=== PATIENT | female | born 2000 | race Caucasian/White ===

== ENCOUNTER 2023-08-31 03:27 | Outpatient (CLI) | payer SELFPAY | END 2023-08-31 03:28 | disposition home or self-care (01) | PROVIDERS: Visit Provider Midwife | DX: Z34.01 Encounter for supervision of normal first pregnancy, first trimester (principal) | CPT/HCPCS: 36415; 86900; 86901 ==

== ENCOUNTER → 2023-09-27 01:09 | Outpatient (CLI) | payer MEDICAID, SELFPAY ==
--- NOTE | 2023-09-27 | DI.US_ITS ---
Exam(s) US OB 2-3 TRIMESTER W MOD EXAM: US OB 2-3 TRIMESTER W MOD CLINICAL HISTORY: SURVEY,z34.00. TECHNIQUE: Transabdominal obstetrical ultrasound performed. COMPARISON: US US OB 1ST TRIMESTER from 08/14/2023 FINDINGS: Number of fetuses: One. position: Ruy breech Placental grade: 1 Placental location: Anterior tip of placenta measures 2.9 cm from internal os.. Cervical length 4.3 cm. BIOMETRIC DATA: BPD: 47mm = 20+ 2 weeks HC: 183mm = 20+ 5 weeks AC: 151mm = 20+ 2 weeks FL: 34mm = 20+ 6 weeks Cisterna Magna: 4 mm Cerebellum: 2.0 cm EFW: 360 grms 60% Composite Age: 20 weeks 4 days EDC by US: 10 February 2024 Heart Rate: 144BPM Amniotic fluid : Amount of fluid is within normal limits. ANATOMICAL SURVEY: Four-chambered heart: Unremarkable. LVOT: Unremarkable. RVOT: Not well seen. Left-sided stomach: Unremarkable. urinary bladder: Unremarkable. Bilateral kidneys: Unremarkable. Three-vessel cord: Unremarkable. Cord insertion: Unremarkable. Posterior fossa:Unremarkable. ventricles: Unremarkable. profile: Not well seen. nose: Unremarkable. lips: Unremarkable. palate: Unremarkable. spine: Unremarkable. Two arms and two legs: Unremarkable. IMPRESSION: 1. Single live intrauterine gestation with composite age of 20 weeks 4 days. 2. Normal anatomic survey. RVOT not and profile not well seen. The patient is to return at a later date for additional imaging. DATA REPOSITORY:
== END ==
PROVIDERS: Visit Provider Midwife
DX: Z34.02 Encounter for supervision of normal first pregnancy, second trimester (principal)
CPT/HCPCS: 76805

== ENCOUNTER → 2023-10-09 02:23 | Outpatient (CLI) | payer MEDICAID, SELFPAY ==
--- NOTE | 2023-10-09 | DI.US_ITS ---
Exam(s) US OB F/U FACIAL/LVOT/RVOT EXAM: US OB F/U FACIAL/LVOT/RVOT CLINICAL HISTORY: F/U PREV,RVOT. TECHNIQUE: Transabdominal obstetrical ultrasound performed. COMPARISON: US US OB 2-3 TRIMESTER W MOD from 09/27/2023 FINDINGS: Number of fetuses: 1 position: CEPHALIC heart rate: 145bpm Placental location: There is a grade 1 anterior placenta. Amniotic fluid index: Visually, amount of fluid is within normal limits. ANATOMICAL SURVEY: The right ventricular outflow tract was seen and is unremarkable. The profile is unremarkable. Heart Rate: 145bpm IMPRESSION: 1. Single live intrauterine gestation as above. 2. The right ventricular outflow tract and profile were visualized and are unremarkable. DATA REPOSITORY:
== END ==
PROVIDERS: Visit Provider Midwife
DX: Z34.02 Encounter for supervision of normal first pregnancy, second trimester (principal)
CPT/HCPCS: 76815

== ENCOUNTER 2023-11-19 11:46 | Emergency (ER) | payer MEDICAID, SELFPAY ==
[2023-11-19 11:57] VITALS: BP 130/69; PULSE 102; RESP 18; TEMP 37.2; O2SAT 99
[2023-11-19 12:13] LABS: Bilirubin Negative (Negative); Blood Small (Negative); Clarity Clear (Clear); Glucose Negative (Negative); Ketones Negative (Negative); Leukocyte Esterase Trace (Negative); Nitrite Negative (Negative); Specific Gravity 1.015 (1.005-1.025); Urobilinogen 0.2 mg/dL (Up to 0.2)
[2023-11-19 12:35] LABS: Bacteria Rare HPF (Negative); C & S Indicated? No/Sq. Contamination; Casts Negative LPF (Negative); Crystals Negative HPF (Negative); Epithelial Cells Few HPF (Negative); Mucus Negative (Negative)
--- NOTE | 2023-11-19 13:18 | W.ED.GENAD ---
Discharge Plan Disposition Patient Disposition: Home Discharge Details Clinical Impression: UTI (urinary tract infection) during Primary Care Provider: Darlene Kay ED Provider: Red Preciado Home Meds and New Rx's Prescriptions: New cefpodoxime 200 mg tablet 200 mg PO BID Qty: 14 0RF Rx Instructions: must administer with a meal/food Discharge Instructions Instructions: Urinary Tract Infection in Women (ED) Additional Instructions: Please continue monitor symptoms and if you develop fever, significant vomiting, or severe worsening of symptoms please return immediately to the emergency department for reassessment. Otherwise take medication as prescribed and follow-up with your OB provider or women's wellness Referrals: [facility] [Provider Group] - 3 days () Discharge Data Discharge Date/Time-TO BE ENTERED AT DEPARTURE: 11/19/23 13:32 HPI General Mode of arrival: ambulatory. Date/Time Provider Initiated Documentation: 11/19/23 12:11. Limitations to Documentation: no limitations. Information obtained by: patient and RN notes reviewed. History of Present Illness 23 year old F presents to the emergency department with the chief complaint of Burning with urination, described as moderate and similar to prior episodes, Patient started experiencing this day(s) (4) and it has been constant. No relieving factors improve symptom(s), No exacerbating factors reported . Patient did receive the following treatments prior to arrival, none Related Data Home Medications Medication Instructions Recorded Confirmed cefpodoxime 200 mg tablet 200 mg PO BID #14 tabs 11/19/23 Previous Rx's Medication Instructions Recorded cefpodoxime 200 mg tablet 200 mg PO BID #14 tabs 11/19/23 Allergies Allergy/AdvReac Type Severity Reaction Status Date / Time No Known Allergies Allergy Unverified 11/19/23 12:00 General Stated Complaint: Urinary BARRON: 4 Review of Systems Constitutional Constitutional: Denies body ache(s), Denies chills, Denies fever(s), Denies malaise and Denies weakness Cardiovascular Cardiovascular: Denies chest pain Respiratory Respiratory: Reports system reviewed and no additional complaints, except as documented Gastrointestinal Gastrointestinal: Denies abdominal pain, Reports nausea and Denies vomiting Genitourinary Genitourinary: Reports as per HPI, Denies hematuria, Reports dysuria, Denies pelvic pain, Reports urinary urgency and Denies vaginal discharge Neurologic Neurologic: Denies confusion and Denies weakness Psychiatric Psychiatric: Denies confusion Exam Const General: cooperative and no acute distress Orientation: alert, awake and oriented x3 Resp Effort & Inspection: normal respiratory effort and able to speak in complete sentences Auscultation: clear to auscultation bilaterally Cardio Rate: regular rate Rhythm: regular rhythm Heart Sounds: S1 normal and S2 normal GI Inspection: other (Obvious ) Palpation: nontender Back/Spine/Pelvis Back: no CVA tenderness Neuro General: patient alert, patient awake and patient oriented x3 Extrem General: capillary refill normal Course Vital Signs Vital signs: Vital Signs Temperature 37.2 C 11/19/23 11:57 Pulse 102 H 11/19/23 11:57 Respiratory Rate 18 11/19/23 11:57 Blood Pressure 130/69 11/19/23 11:57 Pulse Oximetry 99 11/19/23 11:57 Temperature 37.2 C 11/19/23 11:57 Temperature Source Temporal Artery Scan 11/19/23 11:57 Pulse 102 H 11/19/23 11:57 Respiratory Rate 18 11/19/23 11:57 Blood Pressure 130/69 11/19/23 11:57 Blood Pressure Position Sitting 11/19/23 11:57 Pulse Oximetry 99 11/19/23 11:57 Oxygen Delivery Method Room Air 11/19/23 11:57 Oxygen Flow Rate 0 11/19/23 11:57 Pain Level 3 11/19/23 11:57 Lab/Test Results Lab/Test Results: Laboratory Tests Range/Units 11/19/23 12:05 Urine Color (Yellow) Yellow Urine Clarity (Clear) Clear Urine pH (5-8) 7.0 Ur Specific [place] (1.005-1.025) 1.015 Urine Protein (Neg-Trace) mg/dL Negative Urine Ketones (Negative) mg/dL Negative Urine Blood (Negative) Small H Urine Nitrite (Negative) Negative Urine Bilirubin (Negative) Negative Urine Urobilinogen (Up to 0.2) mg/dL 0.2 Ur Leukocyte Esterase (Negative) Trace H Urine RBC (0-2) HPF 5-10 H Urine WBC (0-5) HPF 3-5 Ur Epithelial Cells (Negative) HPF Few Urine Crystals (Negative) HPF Negative Urine Bacteria (Negative) HPF Rare Urine Casts (Negative) LPF Negative Urine Mucus (Negative) Negative Ur Culture Indicated? No/Sq. Contamination Urine Glucose (Negative) mg/dL Negative Medical Decision Making Patient presenting to the emergency department for dysuria and cloudy urine. Patient is 27 weeks and had a UTI approximately 2 weeks ago which she is states she believes she was on Macrobid and initially helped with symptoms but starting on she had full return of symptoms which were the same as she had previously. She has been hydrating well and did perform a urine culture with her mechanic field service but has not received any other results. Due to increase of symptoms she is presenting to the emergency department. She does report mild nausea but denies any vomiting, fever, significant abdominal pain or other symptoms. Patient denies any vaginal symptoms and states positive movement. Physical exam is noncontributory. Urinalysis was performed and reviewed does show small amount of blood and trace leukocytes RBC 5-10 and WBC 3-5 lab did state contaminated specimen but given patient's symptoms I am concerned for return of UTI. Given her recent antibiotics we will put patient on cefpodoxime and have patient follow-up on outpatient basis or return as needed. After discussion of diagnosis and plan of care patient has no further needs, questions, or concerns and states clear understanding to return to the emergency department for any worsening symptoms. This documentation was generated using [employer] dictation system, please disregard any oddities of phrase or misspellings. Lab Data Lab results reviewed: Yes I reviewed the patient's lab results. Quality:SDOH Health Related Social Needs: No Data to Display PFSH All Active Problems (Updated 11/19/23 @ 13:22 by Red Preciado NP) UTI (urinary tract infection) during (Acute) Social History Smoking/Tobacco Use Status: Never Smoking risk assessment performed?: Yes Substance use type: does not use
[2023-11-19 13:31] VITALS: BP 130/69; PULSE 96; RESP 18; TEMP 37.2; O2SAT 98
== END 2023-11-19 13:32 | disposition home or self-care (01) ==
PROVIDERS: Emergency Provider Nurse Practitioner Family
DX: O23.43 Unspecified infection of urinary tract in pregnancy, third trimester (principal); R30.9 Painful micturition, unspecified; Z87.440 Personal history of urinary (tract) infections
CPT/HCPCS: 87077; 99283; 81003; 81015; 87086; 87186

== ENCOUNTER 2024-01-10 17:19 | Outpatient (REF) | payer MEDICAID, SELFPAY ==
[2024-01-10 22:02] LABS: Bilirubin Negative (Negative); Blood Negative (Negative); Clarity Clear (Clear); Glucose Negative (Negative); Ketones Negative (Negative); Leukocyte Esterase Negative (Negative); Nitrite Negative (Negative); Specific Gravity 1.015 (1.005-1.025); Urobilinogen 0.2 mg/dL (Up to 0.2); pH 6.5 (5-8)
== END 2024-01-10 17:20 | disposition home or self-care (01) ==
LOC: LBN 17:19
PROVIDERS: Visit Provider Nurse Practitioner Family
DX: R35.0 Frequency of micturition (principal)
CPT/HCPCS: 81003

== ENCOUNTER 2024-01-24 12:15 | Outpatient (REF) | payer MEDICAID, SELFPAY | END 2024-01-24 12:16 | disposition home or self-care (01) | LOC: LBN 12:15 | PROVIDERS: Visit Provider Advanced Practice Midwife | DX: Z34.90 Encounter for supervision of normal pregnancy, unspecified, unspecified trimester (principal); O99.820 Streptococcus B carrier state complicating pregnancy | CPT/HCPCS: 87081 ==

== ENCOUNTER 2024-02-14 04:10 | Inpatient (IN) | payer MEDICAID, SELFPAY ==
[2024-02-14] VITALS (26 sets, daily range): BP systolic 115–143; BP diastolic 68–84; PULSE 71–120; RESP 18–20; TEMP 36.6–36.7; O2SAT 99
--- NOTE | 2024-02-14 02:03 | W.OBNST ---
Date of service: 02/14/24 Time of Service: 01:45 NST Evaluation Reason for NST Reasons for Nonstress Test: FALSE LABOR Test and Monitor Explained Test/Monitor Explained: Test Explained, Monitor Explained and Patient Verbalized Understanding Vital Signs Blood Pressure: 135/74 Pulse: 83 NST Information Time on Monitor: 00:40 Date off Monitor: 02/14/24 Time off Monitor: 01:36 NST Interventions: None Contraction Frequency: 5-6 NST Evaluation Patient States Movement: Present FHR Baseline: 115 Variability: Moderate 6-25 bpm Accelerations: 15x15 Decelerations: None NST Results: Reactive Note Ultrasound Done: N/A. NST Note Note: NST is reactive and reassuring. Will allow for ambulation and reassess contractions. Will discharge to home if not in active labor. SAL NST Reviewed and Verified by: Megan Ashley
--- NOTE | 2024-02-14 04:12 | W.PM.OBHPL1 ---
Date of service: 02/14/24 Time of Service: 04:00 Assessment and Plan Assessment and plan (1) Normal labor: Status: Acute Assessment and plan: 1. Admit 2. Will get CBC and type and screen 3. Plan to limit interventions per patient request. 4. Expect NVD. KH OB-HPI Labor/Delivery History of Present Illness Reason for Visit: NST Chief Complaint: Uterine Contractions. ANNEL Calculator Estimated Delivery Date Method Current WG Current Estimate 02/10/24 Ultrasound #1 40w 4d Comments: Ginette presented with regular contractions occurring every 5-6 minutes at approximately 0100. NST was reactive and she had VE by RN which was 3cm. She wanted to stay and be reassessed in an 2 hours or so when CNM saw her at 0150. No LOF or bleeding. Baby active. She is planning low or no intervention at and is coping well. At 0400, patient reports contractions are not significantly stronger but waking her when she tries to sleep. Repeat VE done to help her decide if she would like to stay for observation or admit and or go home. SAL History of Present Expected Delivery Route/Plan - CNM FOB/ - Toni Black (first child) BB (from ultrasound) no circ Ruff support will be FOB only, likes idea of using tub GBS negative Specific Issues/Plan 1. Transfer of care at 34 weeks from [facility] - labs drawn at [facility]. 1a. Planning delivery at [facility], meet and greet 12/28/23, Childbirth classes with Melissa Mondragon 2. 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 UTI - treated x 3 this . Neg [facility]. Taking cranberry pills daily. Assessment: History Reviewed & Current Informed Consent Informed Consent: Risk,Benefits,Alternatives Discussed and Other (process for admission, IV access if indicated by maternal status) Review of Systems All systems reviewed & are unremarkable except as noted in HPI and below (uterine contractions) PFSH All Active Problems (Updated 02/14/24 @ 04:21 by Megan Ashley CNM) Normal labor (Acute) (Acute) Surgical History History of bunionectomy of right great toe Family History Paternal Grandfather Heart disease Paternal Grandmother Clotting disorder Father Hypertension Maternal Grandmother Diabetes Maternal Grandfather Brain tumor Social History Smoking/Tobacco Use Status: Never Second Hand Exposure: No Smoking risk assessment performed?: Yes Alcohol Intake: former Drug use: Never Substance use type: does not use Adopted: No Caregiver/Support person: No Foster care: No Household members: spouse Pets and animals: Yes Pets and animals: dog(s) Sexually active: Yes Do you think of yourself as: straight/heterosexual Current gender identity: female What is your relationship status?: How often do you talk on the phone with friends or family?: twice per week How often do you get together with friends or relatives?: twice per week Do you belong to any clubs or organized social groups?: no Panel score (0-1 are the most socially isolated patients): 2 What type of physical activity do you participate in: walking Duration: 30-45 minutes/day Special glory needs: No Agree to transfusion: Yes Seatbelt use: always Helmet use: Yes Drive intox or ride w/intox stock car driver: No History History 1 Para 0 Hx # Term Pregnancies 0 Multiple births 0 Hx # Pregnancies 0 Ectopic pregnancies 0 AB induced 0 Hx Number of Living Children 0 AB spontaneous 0 Meds Allergies and Home Medications Allergies Allergy/AdvReac Type Severity Reaction Status Date / Time adhesive tape Allergy Mild Skin Rash Verified 02/14/24 04:18 Latex, Natural Rubber Allergy Mild Skin Rash Verified 02/14/24 04:18 Home Medications Medication Instructions Recorded Confirmed Type cranberry 400 mg capsule 400 mg PO BID 12/28/23 02/07/24 History folic acid 800 mcg tablet 0.8 mg PO DAILY 12/28/23 02/07/24 History omega-3 fatty acids 312 mg-dha 250 1 cap PO DAILY 12/28/23 02/07/24 History mg-epa 18 mg capsule ([place] Blue DHA) Exam Physical Exam Vital signs: Temp Pulse Resp BP 98 F 71 20 123/79 02/14/24 00:43 02/14/24 04:08 02/14/24 00:43 02/14/24 04:08 Vital Signs Reviewed: Yes Constitutional Constitutional: no acute distress, average body habitus and cooperative Detailed Labor and Delivery Exam Dilation: 5 Effacement (%): 80 station: -1 Position: TREVOR Cervix position: mid Consistency: soft Hall Score: Cervical Points Exam 0 1 2 3 Dilation Closed 1-2cm 3-4 cm 5-6cm Effacement 0-30% 40-50% 60-70% 80% Consistency Firm Medium Soft Station -3 -2 -1,0 +1,+2 Position Posterior Mid Anterior HALL Score(Cervical Ripeness Score): 11 Amniotic Membrane Status: Intact Contraction Frequency(min): 5-6 Contraction Duration(sec): 60 Contraction Intensity: Moderate Fetus A Heart Rate Baseline: 140 Est. Weight: 7 lb Assessment Note: FHR via doppler 140's. initial NST this morning was reactive and reassuring, will use intermittent EFM / Doppler for labor assessment of FHR per patient request. KH HEENT Exam HEENT Exam: Normal Neck Exam Neck Exam: Normal (normal visual inspection) Respiratory Exam Respiratory Exam: Normal Cardiovascular Exam Cardiovascular Exam: Normal Rectal Exam Rectal Exam: Not Done Back/Spine/Pelvis Exam Back Exam: Normal Skin Exam Skin Exam: Normal Neurological Exam Neurological Exam: Normal Psychiatric Exam Psychiatric Exam: Normal Results Results Group Beta Strep: Negative Blood Type: A+ Rubella Status: Immune Varicella Immunity: Immune Lab Results: GC CT negative, Hep B and C neg, HIV neg, syphilis neg, patient transferred into our care at approximately 37 weeks gestation, 1 hour glucose 62 Risk Assessment Risk for Shoulder Dystocia Historical/Initial OB: NEGATIVE FOR: Pelvic Abnormality, Pre- BMI>30, Previous Shoulder Dystocia or Previous Macrosomia 40 Weeks: NEGATIVE FOR: EFW> 4500 gms, Maternal Weight Gain >40lb or Post Dates Date/Initial: 12/28/23 SAL Delivery Plan @ 40 wks: NVD SAL Risk for Pre-Eclampsia Yes, if one or more: NEGATIVE FOR: Hx Pre-E/Gest HTN, Chronic HTN, Multiple Gestation, Pre-gestational DM, Renal Disease, Systemic Lupus or APA Syndrome Yes, if 2 or more: POSITIVE FOR: Nulliparity; NEGATIVE FOR: Age>= 35 yrs, >10yr btwn pregnancies, BMI>30, ethinicty, Mother/Sister w/ Pre-E or Previous IUGR Risk for Post- Hemorrhage Initial: NEGATIVE FOR: Multiple Gestation, Previous PPH, Known Clotting Deficiency, Grand Multiparity or Anticoagulation 40 Weeks: NEGATIVE FOR: Anemia, hgb<10, Low platelets (thrombocytopenia), Gestation HTN or Pre-E, Polyhydraminios or EFW>4500gms At Risk?: No Counseled re: Active Management: Yes (undecided on using active managment Kh) Risks Reviewed Risks Reviewed Upon Admission: Yes (low risk X 3)
[2024-02-14 08:09] LABS: HCT 34.7 % (36.0-46.0); HGB 11.2 g/dL (11.2-15.7); MCHC 32.3 % (32.0-36.0); MCV 81 fL (80-95); MPV 12.6 fL (8.0-11.0); Platelet Count 186 10^3/uL (130-400); RDW-SD 40.4 fL; WBC 12.42 10^3/uL (4.4-10.8)
--- NOTE | 2024-02-14 08:14 | W.PM.OBNL1 ---
Date of service: 02/14/24 Time of Service: 08:14 Informed Consent Informed Consent: Risk,Benefits,Alternatives Discussed and Other (process for admission, IV access if indicated by maternal status) Contractions Monitor Mode: Palpation Contraction Frequency(min): 2-5 Contraction Duration(sec): 60 Intensity: Moderate Fetus A Monitor: Doppler Heart Rate Baseline: 115 Amniotic Membrane Status: Intact Assessment and Plan Assessment and plan (1) Normal labor: Status: Acute Assessment and plan: 1. Continue present management, we have reviewed options for comfort in labor. 2. Expect NVD Objective Abnormal lab results 02/14/24 Range/Units 06:15 WBC 12.42 H (4.4-10.8) 10^3/uL Hct 34.7 L (36.0-46.0) % MCH 26.0 L (27.0-33.0) pg MPV 12.6 H (8.0-11.0) fL Temp Pulse Resp BP 98 F 74 20 135/84 02/14/24 04:19 02/14/24 05:51 02/14/24 04:19 02/14/24 05:51 Laboratory Results WBC 12.42 10^3/uL (4.4-10.8) H 02/14/24 06:15 RBC 4.30 10^6/uL (3.93-5.22) 02/14/24 06:15 Hgb 11.2 g/dL (11.2-15.7) 02/14/24 06:15 Hct 34.7 % (36.0-46.0) L 02/14/24 06:15 MCV 81 fL (80-95) 02/14/24 06:15 MCH 26.0 pg (27.0-33.0) L 02/14/24 06:15 MCHC 32.3 % (32.0-36.0) 02/14/24 06:15 RDW 14.0 % (11.7-14.6) 02/14/24 06:15 Plt Count 186 10^3/uL (130-400) 02/14/24 06:15 MPV 12.6 fL (8.0-11.0) H 02/14/24 06:15 ABO/Rh A Positive 02/14/24 06:15 Antibody Screen NEGATIVE 02/14/24 06:15 Vital Signs Reviewed: Yes Subjective Interval history since last seen: Ginette and Toni are doing very well working together through contractions. She has been using shower and alternating positions. Reports some bloody show recently but no rectal pressure. States contractions are closer and stronger but managing well. Results Hemoglobin/Hematocrit: Hgb 11.2 g/dL (11.2-15.7) 02/14/24 06:15 Hct 34.7 % (36.0-46.0) L 02/14/24 06:15 Abnormal Lab Findings: Abnormal Labs 02/14/24 06:15 WBC 12.42 H Hct 34.7 L MCH 26.0 L MPV 12.6 H
--- NOTE | 2024-02-14 14:15 | W.PM.OBNL1 ---
Date of service: 02/14/24 Time of Service: 14:15 Informed Consent Informed Consent: Risk,Benefits,Alternatives Discussed and Other (process for admission, IV access if indicated by maternal status) Pelvic Exam Dilation: 9 Effacement (%): 100 station: -1 Position: VANESSA Cervix Position: anterior Consistency: soft (stretches easily around head) Contractions Monitor Mode: Palpation Contraction Frequency(min): 2-4 Contraction Duration(sec): 60 Intensity: Moderate/Strong Fetus A Monitor: Doppler Amniotic Membrane Status: Ruptured Rupture Method: Spontaneous Amniotic Fluid: Clear Amount: small Date of Membrane Rupture: 02/14/24 Time of Membrane Rupture: 11:10 Assessment and Plan Assessment and plan (1) Normal labor: Status: Acute Assessment and plan: 1. Patient feels she is doing well and prefers to continue with expectant management 2. VE 9/100/-1 VANESSA 3. Afebrile, ROM at approximately 1110 today 4. Plan to reassess at 1600 or prn. KH Objective Abnormal lab results 02/14/24 Range/Units 06:15 WBC 12.42 H (4.4-10.8) 10^3/uL Hct 34.7 L (36.0-46.0) % MCH 26.0 L (27.0-33.0) pg MPV 12.6 H (8.0-11.0) fL Temp Pulse Resp BP Pulse Ox 98.1 F 83 18 125/74 99 02/14/24 12:45 02/14/24 14:14 02/14/24 07:15 02/14/24 14:14 02/14/24 07:15 Laboratory Results WBC 12.42 10^3/uL (4.4-10.8) H 02/14/24 06:15 RBC 4.30 10^6/uL (3.93-5.22) 02/14/24 06:15 Hgb 11.2 g/dL (11.2-15.7) 02/14/24 06:15 Hct 34.7 % (36.0-46.0) L 02/14/24 06:15 MCV 81 fL (80-95) 02/14/24 06:15 MCH 26.0 pg (27.0-33.0) L 02/14/24 06:15 MCHC 32.3 % (32.0-36.0) 02/14/24 06:15 RDW 14.0 % (11.7-14.6) 02/14/24 06:15 Plt Count 186 10^3/uL (130-400) 02/14/24 06:15 MPV 12.6 fL (8.0-11.0) H 02/14/24 06:15 ABO/Rh A Positive 02/14/24 06:15 Antibody Screen NEGATIVE 02/14/24 06:15 Subjective Interval history since last seen: Ginette has been napping between contractions. Has been leaking some clear fluid for a few hours. Denies rectal pressure with contractions but wanted VE. KH Results Hemoglobin/Hematocrit: Hgb 11.2 g/dL (11.2-15.7) 02/14/24 06:15 Hct 34.7 % (36.0-46.0) L 02/14/24 06:15 Abnormal Lab Findings: Abnormal Labs 02/14/24 06:15 WBC 12.42 H Hct 34.7 L MCH 26.0 L MPV 12.6 H
--- NOTE | 2024-02-14 17:51 | OBVDS_ITS ---
Date of service: 02/14/24 Time of Service: 18:04 OB Labor/ Delivery Information Baby A Delivery Delivery Method: Spontaneaous Presentation: Cephalic Vertex Position: Right Occipital Anterior Cord Description-Baby A: 3 Vessels, Nuchal Cord (X1 reduced before shoulders delivered) and Clamped/Cut Amniotic Fluid: Clear Estimated Blood Loss: 200 Delivery Outcome: Liveborn Infant Complications: none noted at delivery Transferred: Remains with Mother Note: Ginette and her , Toni, presented today at 0100 in early labor. She started labor at 2300 on 02/13/24 and at 0100 was 3cm by RN exam. She continued to progress and was 5cm at approximately 0400 on 02/14/24. Intitial FHR tracing was CAT I and FHR via doppler was normal range throughout labor and delivery. She experienced SROM at 1110 today, clear fluid. She began to feel involuntary urge to push at 1704 and was 10 cm +1. Second stage huddle was held. She pushed very effectively and brought head to on her side and then rotated to Carmelina position and nuchal cord X 1 was noted and reduced after head delivered at 1727. Maternal effort was decreased and anterior shoulder was not delivering with maternal efforts and Carmelina so Supra pubic pressure was applied for approximately 15 seconds and shoulder delivered easily with baby delivering at 1729 over intact perineum. Ginette requested to avoid active management of third stage. Baby was brought skin to skin immediately after but then after cord was double clamped and cut at approximately 1732, baby was position into Mother's arms. Placenta delivered spontaneously, intact at 1740. Cord blood obtained. Bi-manual was done and lower uterine segment was firm, no clots noted. Fundus firmed to U-1. EBL 200cc. Vagina and perineum inspected and found to be intact. Mother and baby are in satsifactory condition. Ginette plans to breast feed her baby boy, Speedy. They do not plan circumcision. Baby's apgars were 7 and 9. Sponge and instrument count are correct. Mother and baby are in satisfactory condition. Expect 24-48 hour PP stay. See completed delivery record for weight. Providers Nurse Vending Technician: Megan Ashley Nurse: Eleonora Garcia Nurse: Melody Jordan Labor/Delivery Information Number of Babies in Womb: 1 Steroids Given: None Reason Steroids Not Administered: N/A Group Beta Strep: Negative Antibiotics Administered: No Rubella Status: Immune Blood Type: A+ Varicella Immunity: Immune Maternal Complications: None and Prolonged Labor(>20hrs) Shoulder Dystocia: Yes Stages of Labor Onset of Labor Date: 02/13/24 Onset of Labor Time: 23:00 Complete Dilatation Date: 02/14/24 Complete Dilatation Time: 17:04 Labor - Stage 1 Duration: 18 hours and 4 minutes ROM Baby A: 02/14/24 ROM Baby A: 11:10 ROM Total Time- Baby A: [id number] Delivery Date-Baby A: 02/14/24 Infant Delivery Time-Baby A: 17:29 Labor Stage 2 Duration: 25 minutes Placenta Delivery Date-Baby A: 02/14/24 Placenta Delivery Time-Baby A: 17:40 Labor-Stage 3 Duration: 11 minutes Total Length of Labor-Baby A: 18 hours and 29 minutes Placenta Cultured: No Placenta Status: Delivered Baby A Gender: Male Gestational Status: Term (39-41.6 wks) Gestational Age in Weeks/Days: 40 Weeks and 4 Days Score-1 Minute Interval(Baby A) Heart Rate-1 minute: 100 BPM or Greater Respiratory Effort- 1 minute: Slow Respiration/Weak Cry Muscle Tone-1 minute: Minimal Flexion/Extension Reflex Response-1 minute: Prompt Response Color-1 minute: Bluish Hands or Feet Total Score-1 minute: 7 Score-5 Minute Interval(Baby A) Heart Rate- 5 minute: 100 BPM or Greater Respiratory Effort-5 minute: Spontaneous/Strong Cry Muscle Tone-5 minute: Active Movement Reflex Response-5 minute: Prompt Response Color-5 minute: Bluish Hands or Feet Total Score- 5 minute: 9 Shoulder Dystocia Delivery Times Date of Delivery of Head: 02/14/24 Time of Delivery of the Head: 17:27 Head to Body Delivery Interval(minutes): 2 Verify No Fundal Pressure Applied Fundal Pressure: No Pressure Applied Arm Under Sympisis Arm Under Symphisis: Right Interventions Carmelina Maneuver: Date: 02/14/24 Time: 17:28 SD Intervention: McRobert's Maneuver 2nd Intervention: Date: 02/14/24 Time: 17:28 SD Intervention: Suprapubic Pressure Note: with maternal pushing effort and a single attempt at supra pubic pressure shoulders delivered
[2024-02-14] MEDS: miSOPROStol 200 MCG TAB 400 MCG SL (18:25)
[2024-02-14] MEDS: Oxytocin 10 UNITS/ML VIAL IM (18:25)
[2024-02-14] MEDS: Acetaminophen 325 MG TAB 650 MG PO (18:36)
[2024-02-14] MEDS: Dibucaine 1% 28 GM TUBE TP (18:37)
[2024-02-14] MEDS: Hamamelis Leaf/Glycerin 100 EACH BOX PR (18:37)
[2024-02-14] MEDS: Ibuprofen 600 MG TAB PO (18:37)
[2024-02-15 00:05] VITALS: BP 132/74; PULSE 74; RESP 18; TEMP 36.8
[2024-02-15 03:38] VITALS: BP 132/74; PULSE 74; RESP 18; TEMP 36.9
[2024-02-15 06:31] LABS: Abs Immature Grans 0.09 10^3/uL (0.0-0.06); Absolute Basophil Count 0.04 10^3/uL (0.0-0.2); Absolute Lymphocyte Count 2.68 10^3/uL (1.2-3.4); Basophils % 0.3 %; Eosinophils % 0.9 %; HCT 26.7 % (36.0-46.0); HGB 8.7 g/dL (11.2-15.7); Immature Grans % 0.7 %; Lymphocytes % 19.4 %; MCH 26.4 pg (27.0-33.0); MCHC 32.6 % (32.0-36.0); MCV 81 fL (80-95); MPV 12.2 fL (8.0-11.0); Monocytes % 9.4 %; Neutrophils % 69.3 %; Platelet Count 185 10^3/uL (130-400); RBC 3.29 10^6/uL (3.93-5.22); RDW 14.2 % (11.7-14.6); RDW-SD 41.1 fL; WBC 13.83 10^3/uL (4.4-10.8)
[2024-02-15 06:35] LABS: Absolute Eosinophil Count 0.12 10^3/uL (0.0-0.7); Absolute Neutrophil Count 9.58 10^3/uL (1.2-6.7)
--- NOTE | 2024-02-15 08:20 | W.PM.OBPNV1 ---
Date of service: 02/15/24 Time of Service: 08:20 Assessment and Plan Assessment and plan (1) care following vaginal delivery: Status: Acute Assessment and plan: 1. Normal PP exam this morning 2. Considering [facility] for contraception 3. Planning discharge tomorrow. SAL (2) hemorrhage, delivered, current hospitalization: Status: Acute Assessment and plan: 1. PPH likely due to full bladder as lower uterine segment was firm with bi-manual and then fundus would get boggy again. Responded well to IV pitocin 10 units, 400 mcg misoprostol and emptying bladder PP 2. Anemia with hgb 8.6 today. Doing own ADL's and HR normal, will start ferrous sulfate BID. SAL (3) Lactating mother: Status: Acute Assessment and plan: 1. continue to seek assistance when latching, consider consult with LC 2. will reassess 02/16/24 for potential discharge. Subjective Subjective Interval history: Feeling well. Able to perform own ADL's without difficulty or dizziness. Planning on staying today and going home tomorrow. States breast feeding is going fairly well. No pain. Recent pad change but reports taking at least 2 hours to cover pad with lochia. No clots. [place] baby status: Nursing well, Rooming in and Strong Bonding Observed [place] feeding status: Exclusively breast feeding Exam Physical Exam Vital signs: Temp Pulse Resp BP Pulse Ox 98.4 F 74 18 132/74 99 02/15/24 03:38 02/15/24 03:38 02/15/24 03:38 02/15/24 03:38 02/14/24 07:15 Vital Signs Reviewed: Yes Constitutional Constitutional: no acute distress, average body habitus and cooperative HEENT Exam HEENT Exam: Normal Neck Exam Neck Exam: Normal (normal visual inspection) Respiratory Exam Respiratory Exam: Normal Cardiovascular Exam Cardiovascular Exam: Normal Abdominal Exam Abdomen: Other (normal exam) Fundal Exam Fundus: Below Umbilicus and Firm Comment: small lochia noted. Rectal Exam Rectal Exam: Not Done Exam Perineum: Intact and Normal Extremities Exam Extremity Exam: Normal (denies calf tenderness) and Full ROM Back/Spine/Pelvis Exam Back Exam: Normal Skin Exam Skin Exam: Normal Neurological Exam Neurological Exam: Normal Psychiatric Exam Psychiatric Exam: Normal Results Hemoglobin/Hematocrit: Hgb 8.7 g/dL (11.2-15.7) L D 06/06/24 06:20 Hct 26.7 % (36.0-46.0) L 02/15/24 06:20 Abnormal Lab Findings: Abnormal Labs 02/14/24 02/15/24 06:15 06:20 WBC 12.42 H 13.83 H RBC 3.29 L Hgb 8.7 L D Hct 34.7 L 26.7 L MCH 26.0 L 26.4 L MPV 12.6 H 12.2 H Absolute Neutrophils 9.58 H Absolute Monocytes 1.30 H
[2024-02-15 09:28] VITALS: BP 121/69; PULSE 92; RESP 16; TEMP 36.8; O2SAT 99
[2024-02-15] MEDS: Docusate Sodium 100 MG CAP PO ×2 (09:58→20:24)
[2024-02-15] MEDS: Ferrous Sulfate 325 MG TAB PO ×2 (09:58→20:24)
[2024-02-15 13:23] VITALS: BP 121/75; PULSE 113; RESP 18; TEMP 36.8; O2SAT 98
[2024-02-15 16:30] VITALS: BP 123/85; PULSE 95; RESP 16; TEMP 37; O2SAT 98
[2024-02-15 21:08] VITALS: BP 124/88; PULSE 90; RESP 16; TEMP 37.2; O2SAT 98
--- NOTE | 2024-02-16 09:32 | W.PM.OBPNV1 ---
Date of service: 02/16/24 Time of Service: 09:32 Assessment and Plan Assessment and plan (1) Anemia, : Status: Acute (2) Lactating mother: Status: Acute (3) care following vaginal delivery: Status: Acute Assessment and plan: A: PPD#2, nml recovery Hgb @ 8.7 after delivery, pt denies dizziness or SOB P: Discharge today per pt desire going well Plans nonhormonal BCM Written instructions reviewed and given to pt Advised on iron rich foods and daily iron supplement F/up at 2 & 6 wks Subjective Subjective Patient comments: No complaints, Pain well controlled, Tolerating diet, Flatus present and Bowel Movement Patient's Mood: happy, tired [place] baby status: Doing well, Nursing well, Rooming in and Strong Bonding Observed [place] feeding status: Exclusively breast feeding Exam Physical Exam Vital signs: Temp Pulse Resp BP Pulse Ox 99.0 F 90 16 124/88 98 02/15/24 21:08 02/15/24 21:08 02/15/24 21:08 02/15/24 21:08 02/15/24 21:08 Vital Signs Reviewed: Yes Constitutional Constitutional: no acute distress, average body habitus and cooperative HEENT Exam HEENT Exam: Normal Neck Exam Neck Exam: Normal Breast Exam Bilateral: Breast Exam: Normal and Soft Nipple Exam: Normal and Uninjured Respiratory Exam Respiratory Exam: Normal Cardiovascular Exam Cardiovascular Exam: Normal Abdominal Exam Abdomen: Other (soft, nontender) Fundal Exam Fundus: Below Umbilicus and Firm Rectal Exam Rectal Exam: Normal Exam Perineum: Intact and Normal Extremities Exam Extremity Exam: Normal, Full ROM and Warm to Touch Back/Spine/Pelvis Exam Back Exam: Normal Skin Exam Skin Exam: Normal Neurological Exam Neurological Exam: Normal Psychiatric Exam Psychiatric Exam: Normal
--- NOTE | 2024-02-16 10:02 | W.PM.OBDISCH ---
Date of service: 02/16/24 Time of Service: 10:02 DS: Diagnosis Discharge Diagnosis (1) Anemia, : Status: Acute (2) Lactating mother: Status: Acute (3) care following vaginal delivery: Status: Acute Discharge Plan Disposition Condition: Good Discharge Details Reason For Visit: labor at termn Admit Date/Time: 02/14/24 04:10 Admit Provider: Megan Ashley Attending Provider: Megan Ashley Primary Care Provider: Darlene Kay Hospital Course Hospital Course: on HD#1, increased blood loss at delivery not requiring surgical intervention nor transfusion, normal recovery, discharge on PPD#2 Home Meds and New Rx's Prescriptions: No Action S[employer] Blue DHA 312-250-18 mg capsule 1 cap PO DAILY folic acid 800 mcg tablet 0.8 mg PO DAILY cranberry 400 mg capsule 400 mg PO BID Rx Instructions: administer with meals ferrous sulfate 325 mg (65 mg iron) tablet 325 mg PO DAILY Qty: 90 3RF docusate sodium [Colace] 100 mg capsule 100 mg PO BID Qty: 90 4RF Rx Instructions: may take once or twice per day Discharge Instructions Additional Instructions: Please keep your 2 and 6 week appointments with the midwives, call for any and all questions and concerns. Stand Alone Forms: BC Instructions, BC Post Vaginal Deliver Activity:: Activity as Tolerated Equipment/Supplies:: No Equipment Needed Diet:: Normal Diet OB:DS Summary Summary Vaginal Delivery Method: Spontaneaous Episiotomy Description: None Laceration Description: None Laceration Extension: N/A Contraception Discussed Contraception Discussed: Yes Contraceptive Plan: Foam/Condoms, Infant Gender-Baby A: Male weight: 7 lb 7.05 oz Status at Discharge Functional status at discharge: independent ambulation Overall status at discharge: patient is progressing back to baseline Mental Status: mental status grossly normal Speech and Movement: speech and movement normal and speech clear Mood: congruent mood Affect: normal affect Quality:SDOH Health Related Social Needs: No Data to Display Exam Physical Exam Vital signs: Temp Pulse Resp BP Pulse Ox 99.0 F 90 16 124/88 98 02/15/24 21:08 02/15/24 21:08 02/15/24 21:08 02/15/24 21:08 02/15/24 21:08 Constitutional Constitutional: no acute distress, average body habitus and cooperative HEENT Exam HEENT Exam: Normal Neck Exam Neck Exam: Normal Breast Exam Bilateral: Breast Exam: Normal and Soft Respiratory Exam Respiratory Exam: Normal Cardiovascular Exam Cardiovascular Exam: Normal Abdominal Exam Abdomen: Other (soft, nontender) Fundal Exam Fundus: Below Umbilicus and Firm Rectal Exam Rectal Exam: Normal Exam Perineum: Intact and Normal Extremities Exam Extremity Exam: Normal, Full ROM and Warm to Touch Back/Spine/Pelvis Exam Back Exam: Normal Skin Exam Skin Exam: Normal Neurological Exam Neurological Exam: Normal Psychiatric Exam Psychiatric Exam: Normal PFSH All Active Problems (Updated 02/16/24 @ 09:37 by Fara Tate) Anemia, (Acute) Term delivered (Acute) Lactating mother (Acute) hemorrhage, delivered, current hospitalization (Acute) care following vaginal delivery (Acute) Medical History (Updated 02/16/24 @ 09:37 by Fara Tate) Normal labor Surgical History History of bunionectomy of right great toe Family History Paternal Grandfather Heart disease Paternal Grandmother Clotting disorder Father Hypertension Maternal Grandmother Diabetes Maternal Grandfather Brain tumor Social History Smoking/Tobacco Use Status: Never Second Hand Exposure: No Smoking risk assessment performed?: Yes Alcohol Intake: former Drug use: Never Substance use type: does not use Adopted: No Caregiver/Support person: No Foster care: No Household members: spouse Housing: other Pets and animals: Yes Pets and animals: dog(s) Sexually active: Yes Do you think of yourself as: straight/heterosexual Current gender identity: female What is your relationship status?: How often do you talk on the phone with friends or family?: twice per week How often do you get together with friends or relatives?: twice per week Do you belong to any clubs or organized social groups?: no Panel score (0-1 are the most socially isolated patients): 2 What type of physical activity do you participate in: walking Duration: 30-45 minutes/day Special glory needs: No Agree to transfusion: Yes Seatbelt use: always Helmet use: Yes Drive intox or ride w/intox school bus driver/teacher assistant: No Do you feel safe at home: Yes Do you feel safe in your relationship?: Yes History History 1 Para 0 Hx # Term Pregnancies 0 Multiple births 0 Hx # Pregnancies 0 Ectopic pregnancies 0 AB induced 0 Hx Number of Living Children 0 AB spontaneous 0 DS: Data Vitals/I&O Vitals and I&O: Vital Signs Temperature 99.0 F 02/15/24 21:08 Temperature 208.4 F 02/14/24 02:09 Temperature Source Tympanic 02/14/24 00:43 Temperature Source Oral 02/15/24 21:08 Pulse 90 02/15/24 21:08 Pulse 83 02/14/24 02:09 Pulse Rhythm Regular 02/15/24 21:08 Respiratory Rate 16 02/15/24 21:08 Respiratory Depth Normal 02/15/24 21:08 Blood Pressure 124/88 02/15/24 21:08 Blood Pressure 135/74 02/14/24 02:09 Blood Pressure Mean 100 02/15/24 21:08 Pulse Oximetry 98 02/15/24 21:08 Oxygen Delivery Method Room Air 02/14/24 04:19 Oxygen Flow Rate 0 02/14/24 04:19 Pain Level 2 02/15/24 21:08 Comment Taken while pt in shower 02/14/24 15:35 Intake & Output 02/15/24 02/15/24 02/16/24 11:59 23:59 11:59 Output Total 200 / 400 200 / 400 Balance -200 / -400 -200 / -400 Output: Urine 200 / 400 200 / 400 Other: Urine Color Yellow Yellow Urine Appearance Clear Urine Odor None Comment Patient states she voided at this time but not in hat; no issues with voiding Voiding Methods Toilet Toilet
[2024-02-16 11:15] VITALS: BP 112/71; PULSE 104; RESP 17; TEMP 37.2
== END 2024-02-16 12:45 | disposition home or self-care (01) | DRG 806 ==
LOC: BCD 04:50 → OBS 04:50
PROVIDERS: Admitting Provider Advanced Practice Midwife; Visit Provider Advanced Practice Midwife
DX: O69.81X0 Labor and delivery complicated by cord around neck, without compression, not applicable or unspecified (principal); O72.1 Other immediate postpartum hemorrhage; Z37.0 Single live birth; Z3A.40 40 weeks gestation of pregnancy
CPT/HCPCS: 36415; 85027; 86850; 86900; 86901; 85025; J2590

== ENCOUNTER 2024-03-26 12:41 | Outpatient (REF) | payer MEDICAID, SELFPAY ==
--- NOTE | 2024-03-26 11:30 | PAPFT_PTH ---
PATIENT: Ginette Black LOC: [facility] U#:[id number] AGE/SX: 24/F ROOM: RE03/26/[address]: Megan Silverman : 2000 BED: DIS: 03/26/2024 SPEC #: [id number] RECD: 03/26/24 13:06 STATUS: KALLIE REAgustin #: [id number] TENISHA: 03/26/24 11:[address]: Megan Silverman DEPT: [facility] Cytology RECD BY: Maggi Mahmood ENTERED: 03/26/24 13:06 SP TYPE: PAPFT OTHR DR: Darlene Kay Tissues: 1 - CX/ENDOCX FOR PAP SMEARS Procedures: PAP THIN PREP/[facility] Screening Comments: [id number]
== END 2024-03-26 12:42 | disposition home or self-care (01) ==
LOC: LBN 12:41
PROVIDERS: Visit Provider Advanced Practice Midwife
DX: N89.8 Other specified noninflammatory disorders of vagina (principal)
CPT/HCPCS: 88142; 87480; 87510; 87660